=== PATIENT | male | born 1960 | race Caucasian/White ===

== ENCOUNTER → 2020-08-12 13:07 | Outpatient (BNVA) | payer OTHER, SELFPAY | PROVIDERS: Visit Provider Nurse Practitioner Family | DX: J06.9 Acute upper respiratory infection, unspecified (principal); Z20.822 Contact with and (suspected) exposure to COVID-19 | CPT/HCPCS: 87400; 87635 ==

== ENCOUNTER 2022-05-04 13:57 | Outpatient (CLI) | payer OTHER, SELFPAY ==
--- NOTE | 2022-05-04 14:30 | MR_ITS ---
WS: [id number] EXAMINATION: MR foot RT wo con* [id number] ORDER DATE: 05/04/2022 2:21 PM COMPARISON: None. HISTORY: Sesamoid fracture to the right tibial sesmoid and bone lesio CONTRAST: None. TECHNIQUE: Sagittal T1, sagittal STIR, coronal PD, coronal T2, axial T1, axial T2, and axial PD imagi ng with fat saturation technique. FINDINGS:Small amount of edema in the 1st metatarsal head. Edema at the 1st MTP joint. Small well-cor ticated fracture involving the distal medial sesamoid. Small amount of fluid in the 1st MTP joint. Mi ld hallux valgus Normal anatomic alignment. Normal bone marrow signal in the medial and lateral malleolus. Normal bon e marrow signal in the talar dome. Normal cuboid. Base of the 5th metatarsal appears normal. Cuneifor ms are normal in appearance. Normal talonavicular articulation. Distal Achilles is normal in appearance. Normal peroneal tendon sheath. Normal extensor and flexor co mpartment tendons. MR/MR foot RT wo con* [id number] IMPRESSION: 1. Well-corticated fracture with tiny amount of edema involving the distal med ial sesamoid head of the 1st metatarsal. 2. Small amount of edema 1st metatarsal head with a small amount of fluid in t he 1st MTP joint. 3. Mild hallux valgus. 4. No other acute findings.
== END 2022-05-04 13:58 | disposition home or self-care (01) ==
LOC: RAD 14:01
PROVIDERS: Visit Provider Podiatrist Foot & Ankle Surgery
DX: S92.811A Other fracture of right foot, initial encounter for closed fracture (principal); X58.XXXA Exposure to other specified factors, initial encounter; R60.0 Localized edema
CPT/HCPCS: 73718

== ENCOUNTER → 2024-01-01 11:56 | Outpatient (BNVA) | payer OTHER, SELFPAY | PROVIDERS: Visit Provider Emergency Medicine | DX: J98.8 Other specified respiratory disorders (principal); B97.89 Other viral agents as the cause of diseases classified elsewhere | CPT/HCPCS: 87400 ==